=== PATIENT | female | born 1945 | race Caucasian/White ===

== ENCOUNTER 2019-05-28 | Emergency (ER) | payer MEDICARE, OTHER ==
[2019-05-28 19:29] LABS: HEMATOCRIT 45.7 % (37.0-47.0); HEMOGLOBIN 14.8 g/dl (12.0-16.0); IMMATURE GRANULOCYTES 0.5 % (0.0-5.0); MEAN CORPUSCULAR HGB 29.8 pG CALC (26.0-32.0); MEAN CORPUSCULAR HGB CONC 32.4 g/L CALC (32.0-36.0); NEUT# 7.44 thou/uL (2.00-7.15); RED BLOOD COUNT 4.97 mill/uL (4.20-5.60); RED CELL DISTRI WIDTH 12.9 % (11.5-15.5)
[2019-05-28 19:33] LABS: ALBUMIN 4.5 g/dL (3.2-5.0); ALKALINE PHOSPHATASE 98 u/l (38-126); ANION GAP 16 (6-22 (CALC)); BILIRUBIN, TOTAL 1.1 mg/dL (0.0-1.4); BUN 22 mg/dL (8-23); BUN/CREATININE RATIO 33 (12-20 (CALC)); CARBON DIOXIDE 22 mmol/l (22-30); CHLORIDE 105 mmol/l (95-108); CREATININE 0.7 mg/dL (0.5-1.0); GFR > 60 ML/MIN (>=60 (CALC)); GFR FOR AFR.AMER. > 60 ML/MIN (>=60 (CALC)); LIPASE 55 u/l (23-300); POTASSIUM 4.1 mmol/l (3.5-5.1); SGOT/AST 42 u/l (9-36); SODIUM 139 mmol/l (137-146); TOTAL PROTEIN 8.1 g/dL (6.3-8.2)
[2019-05-28 19:34] LABS: MAGNESIUM 1.9 mg/dL (1.6-2.3)
[2019-05-28 20:04] LABS: TSH, 3RD GENERATION 2.56 uIU/mL (0.47 - 4.68)
[2019-05-28] MEDS ORDERED: PROBIOTI2 PO (20:41)
== END 2019-05-28 21:10 | disposition short-term general hospital (02) ==
PROVIDERS: Family Medicine
DX: I60.4 Nontraumatic subarachnoid hemorrhage from basilar artery (principal); R11.2 Nausea with vomiting, unspecified; H53.149 Visual discomfort, unspecified; R53.1 Weakness

== ENCOUNTER 2019-05-30 | Emergency (ER) | payer MEDICARE, OTHER ==
[~2019-05-30] MED LIST: PROBIOTI2 PO
[2019-05-31 00:13] LABS: HEMATOCRIT 41.2 % (37.0-47.0); HEMOGLOBIN 13.6 g/dl (12.0-16.0); IMMATURE GRANULOCYTES 0.3 % (0.0-5.0); MEAN CELL VOLUME 90.9 fL CALC (80.0-100.0); NEUT# 8.48 thou/uL (2.00-7.15); RED BLOOD COUNT 4.53 mill/uL (4.20-5.60); RED CELL DISTRI WIDTH 13.1 % (11.5-15.5)
[2019-05-31 00:24] LABS: ACT PARTIAL THROMBO TIME 22.8 SECONDS (20.0-32.5); PROTHROMBIN TIME 10.9 SECONDS (9.0-12.5)
[2019-05-31 00:28] LABS: ALBUMIN 3.9 g/dL (3.2-5.0); ALKALINE PHOSPHATASE 85 u/l (38-126); ANION GAP 14 (6-22 (CALC)); BUN 20 mg/dL (8-23); BUN/CREATININE RATIO 25 (12-20 (CALC)); CARBON DIOXIDE 20 mmol/l (22-30); CHLORIDE 110 mmol/l (95-108); CREATININE 0.8 mg/dL (0.5-1.0); GFR > 60 ML/MIN (>=60 (CALC)); GFR FOR AFR.AMER. > 60 ML/MIN (>=60 (CALC)); POTASSIUM 3.6 mmol/l (3.5-5.1); SGOT/AST 50 u/l (9-36); SODIUM 140 mmol/l (137-146); TOTAL PROTEIN 6.9 g/dL (6.3-8.2)
[2019-05-31 00:29] LABS: BILIRUBIN, TOTAL 0.5 mg/dL (0.0-1.4)
[2019-05-31] MEDS ORDERED: DECADRON6 MG PO (01:33)
== END 2019-05-31 02:10 | disposition home or self-care (01) ==
PROVIDERS: Family Medicine
DX: I60.9 Nontraumatic subarachnoid hemorrhage, unspecified (principal); R51 Headache

== ENCOUNTER 2019-07-29 | Emergency (ER) | payer MEDICARE, OTHER ==
[~2019-07-29] MED LIST changes: +DECADRON6 MG PO
[2019-07-29 10:50] LABS: HEMATOCRIT 40.1 % (37.0-47.0); HEMOGLOBIN 12.8 g/dl (12.0-16.0); IMMATURE GRANULOCYTES 0.8 % (0.0-5.0); MEAN CELL VOLUME 92.6 fL CALC (80.0-100.0); MEAN CORPUSCULAR HGB 29.6 pG CALC (26.0-32.0); MEAN CORPUSCULAR HGB CONC 31.9 g/L CALC (32.0-36.0); NEUT# 6.35 thou/uL (2.00-7.15); RED BLOOD COUNT 4.33 mill/uL (4.20-5.60); RED CELL DISTRI WIDTH 13.5 % (11.5-15.5)
[2019-07-29 11:06] LABS: ACT PARTIAL THROMBO TIME 28.6 SECONDS (20.0-32.5); INTERNATIONAL NORMALIZED RATIO 1.1 RATIO (0.7-1.3); PROTHROMBIN TIME 11.3 SECONDS (9.0-12.5)
[2019-07-29 11:16] LABS: ALBUMIN 3.6 g/dL (3.2-5.0); ALKALINE PHOSPHATASE 102 u/l (38-126); ANION GAP 14 (6-22 (CALC)); BUN 8 mg/dL (8-23); BUN/CREATININE RATIO 11 (12-20 (CALC)); CARBON DIOXIDE 24 mmol/l (22-30); CHLORIDE 104 mmol/l (95-108); CREATININE 0.7 mg/dL (0.5-1.0); GFR > 60 ML/MIN (>=60 (CALC)); GFR FOR AFR.AMER. > 60 ML/MIN (>=60 (CALC)); POTASSIUM 3.7 mmol/l (3.5-5.1); SGOT/AST 31 u/l (9-36); SODIUM 138 mmol/l (137-146); TOTAL PROTEIN 7.2 g/dL (6.3-8.2)
[2019-07-29 11:17] LABS: BILIRUBIN, TOTAL 0.8 mg/dL (0.0-1.4)
[2019-07-29 11:27] LABS: MYOGLOBIN 39 ng/mL (0 - 62)
[2019-07-29] MEDS ORDERED: LOPRESSOR25 M1 PO (12:22)
[2019-07-29] MEDS ORDERED: ASPIRIN81 MG PO (12:23)
== END 2019-07-29 17:01 | disposition short-term general hospital (02) ==
PROVIDERS: Family Medicine
DX: I26.99 Other pulmonary embolism without acute cor pulmonale (principal); I10 Essential (primary) hypertension; Z98.890 Other specified postprocedural states; R06.02 Shortness of breath
CPT/HCPCS: Q9967

== ENCOUNTER 2019-10-02 | Emergency (ER) | payer MEDICARE, OTHER ==
[~2019-10-02] MED LIST changes: +ASPIRIN81 MG PO; +LOPRESSOR25 M1 PO
[2019-10-02 18:39] LABS: HEMATOCRIT 43.3 % (37.0-47.0); HEMOGLOBIN 13.9 g/dl (12.0-16.0); IMMATURE GRANULOCYTES 0.4 % (0.0-5.0); MEAN CELL VOLUME 88.7 fL CALC (80.0-100.0); MEAN CORPUSCULAR HGB 28.5 pG CALC (26.0-32.0); MEAN CORPUSCULAR HGB CONC 32.1 g/dL CAL (32.0-36.0); NEUT# 8.89 thou/uL (2.00-7.15); RED BLOOD COUNT 4.88 mill/uL (4.20-5.60); RED CELL DISTRI WIDTH 13.1 % (11.5-15.5)
[2019-10-02 19:18] LABS: ALBUMIN 4.1 g/dL (3.2-5.0); ALKALINE PHOSPHATASE 102 u/l (38-126); ANION GAP 11 (6-22 (CALC)); BILIRUBIN, TOTAL 0.7 mg/dL (0.0-1.4); BUN 17 mg/dL (8-23); CARBON DIOXIDE 28 mmol/l (22-30); CHLORIDE 102 mmol/l (95-108); CREATININE 0.7 mg/dL (0.5-1.0); LIPASE 59 u/l (23-300); POTASSIUM 4.1 mmol/l (3.5-5.1); SGOT/AST 35 u/l (9-36); SODIUM 137 mmol/l (137-146)
[2019-10-02 20:01] LABS: URINE BILIRUBIN - DIPSTICK NEGATIVE (NEGATIVE); URINE BLOOD DIPSTICK NEGATIVE (NEGATIVE); URINE COLOR YELLOW; URINE GLUCOSE - DIPSTICK NEGATIVE (NEGATIVE); URINE KETONE NEGATIVE (NEGATIVE); URINE LEUK ESTERASE NEGATIVE (NEGATIVE); URINE NITRITE - DIPSTICK NEGATIVE (Negative); URINE PH 7.5 (4.5-8.0); URINE PROTEIN - DIPSTICK NEGATIVE (NEG-TRACE); URINE UROBILINOGEN - DIPSTICK 0.2 E.U./dL (0.2)
[2019-10-02 20:01] LABS: BUN/CREATININE RATIO 25 (12-20 (CALC)); GFR > 60 ML/MIN (>=60 (CALC)); GFR FOR AFR.AMER. > 60 ML/MIN (>=60 (CALC))
[2019-10-02] MEDS ORDERED: CIPROFLOXACN500 MG PO (20:14)
[2019-10-02] MEDS ORDERED: METRONIDAZOL500 MG PO (20:14)
== END 2019-10-02 20:28 | disposition home or self-care (01) ==
PROVIDERS: Family Medicine
DX: K57.32 Diverticulitis of large intestine without perforation or abscess without bleeding (principal); I10 Essential (primary) hypertension
CPT/HCPCS: Q9967

== ENCOUNTER 2020-08-15 12:58 | Emergency (ER) | payer MEDICARE, OTHER ==
[~2020-08-15] VITALS: Ht 160 cm; Wt 75.0 kg
[~2020-08-15 12:58] MED LIST changes: +CIPROFLOXACN500 MG PO; +METRONIDAZOL500 MG PO
[2020-08-15] MEDS ORDERED: METOPROL TAR25 M1 PO (14:07)
[2020-08-15 14:23] LABS: HEMATOCRIT 43.2 % (37.0-47.0); HEMOGLOBIN 13.5 g/dl (12.0-16.0); IMMATURE GRANULOCYTES 0.5 % (0.0-5.0); MEAN CORPUSCULAR HGB 29.7 pG CALC (26.0-32.0); MEAN CORPUSCULAR HGB CONC 31.3 g/dL CAL (32.0-36.0); NEUT# 4.03 thou/uL (2.00-7.15); RED BLOOD COUNT 4.55 mill/uL (4.20-5.60); RED CELL DISTRI WIDTH 12.9 % (11.5-15.5)
[2020-08-15 14:26] LABS: MEAN CELL VOLUME 94.9 fL CALC (80.0-100.0)
[2020-08-15 14:35] LABS: ALBUMIN 4.4 g/dL (3.2-5.0); ALKALINE PHOSPHATASE 98 u/l (38-126); ANION GAP 13 (6-22 (CALC)); BILIRUBIN, TOTAL 0.8 mg/dL (0.0-1.4); BUN 14 mg/dL (8-23); BUN/CREATININE RATIO 18 (12-20 (CALC)); CARBON DIOXIDE 26 mmol/l (22-30); CHLORIDE 106 mmol/l (95-108); CREATININE 0.8 mg/dL (0.5-1.0); GFR > 60 ML/MIN (>=60 (CALC)); GFR FOR AFR.AMER. > 60 ML/MIN (>=60 (CALC)); POTASSIUM 3.7 mmol/l (3.5-5.1); SGOT/AST 37 u/l (9-36); SODIUM 140 mmol/l (137-146); TOTAL PROTEIN 7.2 g/dL (6.3-8.2)
[2020-08-15 14:51] LABS: D-DIMER 17.19 mg/L (0.19-0.60)
[2020-08-15 14:54] LABS: ACT PARTIAL THROMBO TIME 22.5 SECONDS (20.0-32.5); PROTHROMBIN TIME 10.5 SECONDS (9.0-12.5)
[2020-08-15] MEDS ORDERED: ELIQUIS5 MG PO (15:43)
[2020-08-15 15:49] VITALS: BP 147/59
== END 2020-08-15 16:05 | disposition home or self-care (01) ==
LOC: ED 12:58
DX: I82.401 Acute embolism and thrombosis of unspecified deep veins of right lower extremity (principal); Q28.2 Arteriovenous malformation of cerebral vessels; I10 Essential (primary) hypertension; K21.9 Gastro-esophageal reflux disease without esophagitis; Z86.79 Personal history of other diseases of the circulatory system; Z86.718 Personal history of other venous thrombosis and embolism; Z95.828 Presence of other vascular implants and grafts; Z86.711 Personal history of pulmonary embolism